=== PATIENT | male | born 1970 | race Caucasian/White ===

== ENCOUNTER → 2019-05-24 16:37 | Outpatient (CLI) | payer OTHER, SELFPAY ==
--- NOTE | 2019-05-24 16:48 | DI.RAD.S_ITS ---
PROCEDURE: XR RIBS RT MIN 3V W CXR 1V INDICATIONS: Right axillary pain, tender with palp TECHNIQUE: 2 views of the right ribs were acquired, along with a single view chest. COMPARISON: None. FINDINGS: Surgical changes and devices: None. Bones and chest wall: No fractures or dislocations. No suspicious bony lesions. Overlying soft tissues appear unremarkable. Lungs and pleura: No pleural effusions or pneumothorax. Lungs appear clear. Mediastinum: Mediastinal contours appear normal. Heart size is normal. IMPRESSION: No acute disease. No rib fracture identified Dictated by: Bryn Ross M.D. on 05/24/2019 at 17:02 Approved by: Bryn Ross M.D. on 05/24/2019 at 17:03
== END ==
PROVIDERS: Family Provider Family Medicine; Visit Provider Nurse Practitioner
DX: R07.81 Pleurodynia (principal)
CPT/HCPCS: 71101

== ENCOUNTER → 2021-12-08 14:23 | Outpatient (CLI) | payer OTHER, SELFPAY ==
[2021-12-08 15:12] LABS: COVID19 -Nasal RAPID POSITIVE (Negative)
== END ==
PROVIDERS: PCP Student in an Organized Health Care Education/Training Program; Visit Provider Family Medicine Sleep Medicine
DX: U07.1 COVID-19 (principal)
CPT/HCPCS: 87635; C9803

== ENCOUNTER → 2021-12-22 14:53 | Outpatient (CLI) | payer OTHER, SELFPAY ==
[2021-12-22 18:04] LABS: COVID19 -Nasal RAPID Negative (Negative)
== END ==
PROVIDERS: PCP Student in an Organized Health Care Education/Training Program; Visit Provider Family Medicine Sleep Medicine
DX: Z20.822 Contact with and (suspected) exposure to COVID-19 (principal)
CPT/HCPCS: 87635; C9803

== ENCOUNTER 2021-12-24 12:08 | Day surgery (SDC) | payer OTHER, SELFPAY ==
--- NOTE | 2021-12-24 | PATH_ITS ---
[facility] Accession Number: [id number] . 01 Material submitted: . sigmoid colon - SIGMOID COLON POLYP 3MM . 01 Diagnosis: Sigmoid Colon, Polyp 3 mm, Biopsy: Hyperplastic polyp. MRV 12/27/2021 1534 Local . 01 Electronically signed: . Ilsa Hernandez MD, Pathologist NPI- [id number] . 01 Gross description: . SIGMOID COLON POLYP 3MM: Received in formalin is 1 fragment(s) of lanza, soft tissue measuring 0.3 x 0.2 x 0.2 cm submitted entirely in 1 cassette(s) /CPE 12/25/2021 0620 Local . 01 Pathologist provided ICD-10: K63.5 . 01 CPT . 436853 Specimen Comment: A courtesy copy of this report has been sent to [phone] Performed at: 01 [facility] [address] [place] [address], [place], [place] [id number] MD Leo Hale MD Phone: [phone]
--- NOTE | 2021-12-24 12:22 | PM.PREOP ---
Pre-operative Note COVID-19 COVID-19 status: Negative Result date/Date tested (Pos, Neg/Pending): 12/22/21 Interval Note History & Physical reviewed/Exam performed by Physician: Yes Changes to H&P: No ASA Class (for procedural sedation): II
--- NOTE | 2021-12-24 12:22 | PM.OP.COLON ---
Operative Date/Time/Diagnoses Date of procedure: 12/24/21 Procedure Notes SCOAP/Timeout: 1:15 p.m. Procedure in detail: ENDOSCOPIST: Linda Morales MD Sedation RN: ILA Ferguson Sedation start time: 1:16 p.m. Sedation end time: 1:42 p.m. PROCEDURE: Colonoscopy with cold biopsy INDICATIONS: 1. Screening for colon cancer MEDICATION: Levsin 0.125 mg sublingual, incremental doses of Versed and fentanyl until appropriate level sedation achieved. ASA CLASS: 2 CECAL WITHDRAWAL TIME: 10 minutes COMPLICATIONS: None. EXTENT OF PROCEDURE: Cecum. QUALITY OF PREP: Good with portions of liquid stool. PROCEDURE: Prior to insertion of the colonoscope, a digital rectal examination was accomplished with circumferential palpation of the distal rectal mucosa without significant findings being noted. The high-definition colonoscope was passed into the rectum in the usual fashion and advanced over to the cecum without difficulty. The ileocecal valve, appendiceal stoma, and medial wall all could be inspected and no abnormalities were seen. ASCENDING COLON: As the colonoscope was withdrawn, care was taken to expose and inspect the haustral folds and no abnormalities were seen. HEPATIC FLEXURE: Normal, no polyps, diverticula or other abnormalities. TRANSVERSE COLON: Normal, no polyps, diverticula or other abnormalities. DESCENDING COLON: Normal, no polyps, diverticula or other abnormalities. SIGMOID COLON: A 3 mm polyp seen and removed with cold biopsy forceps, excellent hemostasis. Otherwise, normal, no diverticula or other abnormalities. RECTUM: Normal. J maneuver was produced. There was no significant perianal disease. The J maneuver was broken. The remainder of the rectum was inspected and there was no external hemorrhoid disease. The scope was withdrawn. IMPRESSION: 1. Sigmoid polyp x1, 3 mm, removed with cold biopsy forceps PLAN: 1. Follow-up in clinic status post pathology results The possibility of a missed lesion including a malignancy has been discussed with the patient previously. Potential alarm symptoms have been discussed and should be reported immediately.
[2021-12-24 12:31] VITALS: BP 116/75; PULSE 76; RESP 16; TEMP 36.4; O2SAT 95; BMI 34.9
[2021-12-24] MEDS: LACTATED RINGERS 1,000 ML 200 ML IV (12:46)
[2021-12-24] MEDS: HYOSCYAMINE 0.125 MG TABLET PO (12:46)
[2021-12-24] MEDS: MIDAZOLAM 5 MG/5 ML VIAL 7 MG IV (13:16)
[2021-12-24] MEDS: fentaNYL 250 MCG/5 ML INJ 200 MCG IV (13:16)
[2021-12-24 13:46] VITALS: BP 130/88; PULSE 77; RESP 16; TEMP 36.3; O2SAT 92
[2021-12-24 13:51] VITALS: BP 128/84; PULSE 78; RESP 14; O2SAT 95
[2021-12-24 13:56] VITALS: BP 125/88; PULSE 79; RESP 15; O2SAT 96
[2021-12-24 14:01] VITALS: BP 130/79; PULSE 75; RESP 16; O2SAT 96
--- NOTE | 2021-12-24 14:32 | SUR.PHASEII ---
1405 A&O, anxious to go home. Denies discomfort, no questions.
== END 2021-12-24 14:10 | disposition home or self-care (01) ==
PROVIDERS: PCP Student in an Organized Health Care Education/Training Program; Referring Provider Student in an Organized Health Care Education/Training Program; Visit Provider Student in an Organized Health Care Education/Training Program
PROC: 0DJD8ZZ Inspection of Lower Intestinal Tract, Via Natural or Artificial Opening Endoscopic (ICD-10-PCS; CPT 45378; principal; 2021-12-24 13:00)
DX: Z12.11 Encounter for screening for malignant neoplasm of colon (principal); K63.5 Polyp of colon
CPT/HCPCS: 45380; J2250; J3010